=== PATIENT | male | born 1945 | race Caucasian/White ===

== ENCOUNTER 2018-03-28 19:16 | Inpatient (IN) | payer OTHER ==
[~2018-03-28] VITALS: Ht 182.9 cm; Wt 114.5 kg
[2018-03-28 22:20] LABS: Hematocrit 42.5 % (41.0-53.0); Hemoglobin 14.5 g/dL (13.5-17.5); Mean Corpuscular Hemoglobin 30.9 pg (28.0-32.0); Mean Corpuscular Hgb Conc. 34.1 g/dL (32.0-36.0); Mean Corpuscular Volume 90.5 fL (80.0-100.0); Platelet Count (auto) 303 10^3/uL (140-450); Red Blood Cells 4.69 10^6/uL (4.5-5.90); Red Cell Distribution Width 13.7 % (11.8-14.3); White Blood Cell 16.2 10^3/uL (4.4-10.8)
[2018-03-28 22:35] LABS: Band Neutrophils % (manual) 0; Basophils % (manual) 0 (0.0-2.0); Blast Cells 0; Metamyelocytes % 0; Myelocytes % 0; Promyelocytes % 0; Reactive Lymphocytes 0
[2018-03-28 22:47] LABS: Alanine Aminotransferase 15 U/L (16-61); Albumin 3.6 g/dL (3.4-5.0); Alkaline Phosphatase 100 U/L (45-117); Anion Gap 10 (5-15); Aspartate Aminotransferase 13 U/L (15-37); BUN/Creatinine Ratio 11.1; Bilirubin, Total 0.4 mg/dL (0.2-1.0); Blood Urea Nitrogen 26 mg/dL (7-18); Calcium 8.7 mg/dL (8.5-10.1); Carbon Dioxide 26 mmol/L (21-32); Chloride 103 mmol/L (98-107); GFR African American 35 mL/min; GFR Non-African American 29 mL/min; Glucose 94 mg/dL (74-106); Magnesium 2.2 mg/dL (1.6-2.6); Potassium 3.9 mmol/L (3.5-5.1); Sodium 139 mmol/L (136-145); Total Protein 7.1 g/dL (6.4-8.2)
[2018-03-28 22:50] LABS: Lactic Acid w/Reflex 2.1 mmol/L (0.4-2.0)
[2018-03-28 23:03] LABS: Eosinophils % (manual) 2 (0-7); Lymphocytes % (manual) 24 (10.0-50.0); Monocytes % (manual) 6 (0-12)
[2018-03-29] MEDS ORDERED: NITROGLYCERIN 0.4 MG SL TAB SL PRN (02:30)
[2018-03-29] MEDS ORDERED: TEMAZEPAM 15 MG CAP PO PRN (02:30)
[2018-03-29] MEDS ORDERED: ACETAMINOPHEN 325 MG TAB PO PRN (02:30)
[2018-03-29] MEDS ORDERED: SODIUM CHLORIDE 0.9% 500 ML IV ONE (02:30)
[2018-03-29] MEDS ORDERED: MORPHINE SULFATE 8mg/ml INJ SDV IV PRN (02:30)
[2018-03-29] MEDS ORDERED: ONDANSETRON HCL 4 MG/2 ML VIAL IV PRN (02:30)
[2018-03-29] MEDS ORDERED: DEXTROSE (50%) 50ML SYRG IV PRN (02:30)
[2018-03-29] MEDS ORDERED: HYDROcodone-ACET 5/325MG TAB PO PRN (02:30)
[2018-03-29 04:00] VITALS: BP 126/75
[2018-03-29 04:34] VITALS: BP 127/63
[2018-03-29 05:20] LABS: Hepatitis B Surface Antibody Negative
[2018-03-29 05:37] LABS: Hepatitis B Surface Antigen Negative (Negative)
[2018-03-29] MEDS: SODIUM CHLORIDE 0.9% 1,000 ML IV SCH ×2 (06:00→16:15)
[2018-03-29] MEDS: ACCU-CHEK COMFORT CURVE STRIP VI SCH ×5 (06:00→20:00)
[2018-03-29] MEDS: InsuLIN REG 1unit/0.01ml Soln (100units/ml) SC SCH ×5 (06:00→20:30)
[2018-03-29] MEDS: GABAPENTIN 300 MG CAP PO SCH ×3 (06:30→23:02)
[2018-03-29] MEDS ORDERED: TAMS0.4C36 PO (07:51)
[2018-03-29] MEDS ORDERED: TEMA30CA PO (07:51)
[2018-03-29] MEDS ORDERED: MECL-87 PO (07:51)
[2018-03-29] MEDS ORDERED: ENAL2.5T PO (07:51)
[2018-03-29] MEDS ORDERED: NAP500T PO (07:51)
[2018-03-29] MEDS ORDERED: METF-371 PO (07:51)
[2018-03-29] MEDS ORDERED: INSU70IN3 SC ×2 (07:51)
[2018-03-29] MEDS ORDERED: GABA300C10 PO (07:51)
[2018-03-29] MEDS ORDERED: METO-169 PO (07:51)
[2018-03-29] MEDS ORDERED: LIRA18IN2 SUBCUT (07:51)
[2018-03-29 09:00] VITALS: BP 120/77
[2018-03-29] MEDS: PANTOPRAZOLE 40 MG TAB PO SCH (09:26)
[2018-03-29] MEDS: cefTRIAXone 1GM/10ml IVPUSH 10 ML IV SCH (09:26)
[2018-03-29] MEDS: ENOXAPARIN SOD 30 MG/0.3 ML SYRINGE SC SCH (09:33)
[2018-03-29 13:00] VITALS: BP 142/82
[2018-03-29 14:25] LABS: BUN/Creatinine Ratio 16.5; Calcium 8.2 mg/dL (8.5-10.1)
[2018-03-29 17:00] VITALS: BP 129/91
[2018-03-29] MEDS ORDERED: TAMSULOSIN HYDROCHLORIDE 0.4 MG CAP PO SCH (18:00)
[2018-03-29 21:20] VITALS: BP 140/73
[2018-03-29 21:57] LABS: Urine Bacteria NONE SEEN /hpf (None Seen); Urine Blood Negative /uL (Negative); Urine Budding Yeast OCCASIONAL /hpf (None Seen); Urine Mucus FEW (None Seen); Urine Specific Gravity 1.013 (1.001-1.035); Urine WBC 1 /hpf (0 - 3)
[2018-03-29 22:10] LABS: Protein, Urine 13.1 mg/dL (0.0-11.9)
[2018-03-29 22:17] LABS: Alcohol, Urine < 3.0 mg/dL (0-5); Amphetamine Screen, Urine NEGATIVE (NEGATIVE); Barbiturate Scree,Urine NEGATIVE (NEGATIVE); Benzodiazephine Screen, Urine NEGATIVE (NEGATIVE); Cannabinoid Screen, Urine NEGATIVE (NEGATIVE); Cocaine Screen, Urine NEGATIVE (NEGATIVE); Opiate Scree,Urine NEGATIVE (NEGATIVE); Phencyclidine Screen, Urine NEGATIVE (NEGATIVE)
[2018-03-29] MEDS: DOCUSATE SOD 100 MG CAP PO SCH (23:02)
[2018-03-30] MEDS: InsuLIN REG 1unit/0.01ml Soln (100units/ml) SC SCH ×3 (00:26→11:56)
[2018-03-30] MEDS: ACCU-CHEK COMFORT CURVE STRIP VI SCH ×3 (00:26→11:56)
[2018-03-30 04:35] VITALS: BP 145/91
[2018-03-30 05:57] LABS: Hematocrit 39.8 % (41.0-53.0); Hemoglobin 13.6 g/dL (13.5-17.5); Mean Corpuscular Hgb Conc. 34.2 g/dL (32.0-36.0); Mean Corpuscular Volume 90.6 fL (80.0-100.0); Platelet Count (auto) 241 10^3/uL (140-450); Red Cell Distribution Width 13.9 % (11.8-14.3); White Blood Cell 11.6 10^3/uL (4.4-10.8)
[2018-03-30 06:06] LABS: Band Neutrophils % (manual) 0; Blast Cells 0; Metamyelocytes % 0; Myelocytes % 0; Promyelocytes % 0; Reactive Lymphocytes 0
[2018-03-30 06:13] LABS: BUN/Creatinine Ratio 14.3; Potassium 4.4 mmol/L (3.5-5.1)
[2018-03-30 06:14] LABS: Bilirubin, Total 0.5 mg/dL (0.2-1.0); Calcium 8.2 mg/dL (8.5-10.1); Total Protein 6.4 g/dL (6.4-8.2)
[2018-03-30 06:45] LABS: Basophils % (manual) 1 (0.0-2.0); Eosinophils % (manual) 2 (0-7); Lymphocytes % (manual) 26 (10.0-50.0); Monocytes % (manual) 11 (0-12)
[2018-03-30] MEDS: SODIUM CHLORIDE 0.9% 1,000 ML IV SCH (07:45)
[2018-03-30 08:40] VITALS: BP 138/74
[2018-03-30] MEDS: DOCUSATE SOD 100 MG CAP PO SCH (09:44)
[2018-03-30] MEDS: ENOXAPARIN SOD 30 MG/0.3 ML SYRINGE SC SCH (09:44)
[2018-03-30] MEDS: PANTOPRAZOLE 40 MG TAB PO SCH (09:44)
[2018-03-30] MEDS: cefTRIAXone 1GM/10ml IVPUSH 10 ML IV SCH (09:45)
[2018-03-30] MEDS ORDERED: LACTULOSE 20Gm/30ML SOLN ONE (12:20)
[2018-03-30] MEDS ORDERED: LACTULOSE 20Gm/30ML SOLN PO ONE (12:30)
[2018-03-30 13:00] VITALS: BP 148/91
[2018-03-30] MEDS: GABAPENTIN 300 MG CAP PO SCH (15:07)
== END 2018-03-30 15:45 | disposition home or self-care (01) | DRG 314 ==
LOC: ER 19:16 → TELE-WESTW 19:17
PROVIDERS: ADMIT Nurse Practitioner; ATTEND Nurse Practitioner
DX: I95.9 Hypotension, unspecified (principal); N17.0 Acute kidney failure with tubular necrosis; E11.22 Type 2 diabetes mellitus with diabetic chronic kidney disease; E11.649 Type 2 diabetes mellitus with hypoglycemia without coma; E11.65 Type 2 diabetes mellitus with hyperglycemia; I67.2 Cerebral atherosclerosis; I13.10 Hypertensive heart and chronic kidney disease without heart failure, with stage 1 through stage 4 chronic kidney disease, or unspecified chronic kidney disease; E86.0 Dehydration; N18.3 Chronic kidney disease, stage 3 (moderate); D72.829 Elevated white blood cell count, unspecified; E03.9 Hypothyroidism, unspecified; E78.5 Hyperlipidemia, unspecified; I70.0 Atherosclerosis of aorta; Z79.4 Long term (current) use of insulin; Z82.49 Family history of ischemic heart disease and other diseases of the circulatory system; Z90.49 Acquired absence of other specified parts of digestive tract
CPT/HCPCS: 36415; 70450; 71045; 76775; 80048; 80053; 80307; 81001; 82570; 82962; 83605; 83735; 83880; 84156; 84484; 85007; 85027; 86703; 86706; 86803; 87040; 87340; 93005; 93306; 94761; 96361; 96374; 96375; J1815